=== PATIENT | female | born 1980 | race Caucasian/White ===

== ENCOUNTER 2023-11-02 12:07 | Emergency (ER) | payer OTHER, SELFPAY ==
[2023-11-02 12:17] VITALS: BP 127/93
[2023-11-02 12:32] VITALS: BMI 23.9
[2023-11-02 12:33] VITALS: BP 120/85
--- NOTE | 2023-11-02 12:47 | ED.GENMED ---
History of Present Illness
General
Chief Complaint: Breathing Problem
Time Seen by Provider: 11/02/23 12:46
Travel History
Have you had any contact with someone who has COVID-19?: No
Do you have any symptoms of coronavirus? Fever > 100 degrees, chills, cough, shortness of breath, sore throat, loss of taste or smell, muscle aches, or headache?: No
History of Present Illness
History of Present Illness:
HPI: The patient presents with 18 days worth of a cough. She has been having trouble sleeping. and patient wonder if there could be a component of anxiety as well. She has a 'vibration' sensation of the chest. She also describes what
sound like palpitations as well. She tried an albuterol inhaler�1 puff which helped for about an hour.
EXAM:
GENERAL: Well appearing in no distress
HEENT: Moist oral mucosa
CARDIOVASCULAR: No murmurs, normal heart rate and rhythm, No chest wall tenderness
PULMONARY: No respiratory distress, breath sounds are clear and equal
ABDOMEN: Soft with no peritoneal signs, no tenderness
NEUROLOGIC: Excellent strength all extremities, no coordination deficits
PSYCHIATRIC: Appropriate mental status, normal insight and judgement, appears slightly anxious
EXTREMITIES: Nontender, no edema, moves all extremities equally
SKIN: No rash, no lesions
ED COURSE:
1:15 PM: I initially evaluated patient
NUMBER AND COMPLEXITY OF PROBLEMS ADDRESSED AT THE ENCOUNTER
� Chronic conditions affecting care: Anxiety, GERD, had COVID in 2019
� Acute Exacerbation and/or Progression of Chronic Illness: This is an acute problem
� Differential Diagnosis includes: Viral syndrome, palpitations, anxiety, dysrhythmia, asthma pneumonia
AMOUNT AND/OR COMPLEXITY OF DATA TO BE REVIEWED AND ANALYZED
� I performed an independent evaluation of and my interpretation is:
EKG:
CT:
X-rays: Chest x-ray personally viewed and I see no clear acute abnormality
Laboratory Studies: COVID and flu testing are negative, CBC unremarkable, bicarb noted to be low however the patient was hyperventilating prior to this lab draw
Other:
� Review of other/old records: The patient had a visit here for shortness of breath in [place] was slightly elevated at that time but there was no CTA evidence of PE
� Clinical information was obtained by an independent historian: I spoke to at bedside
� Prescriptions/Medications Considered but not given:
� Further testing considered but not performed:
RISK OF COMPLICATIONS AND/OR MORBIDITY OR MORTALITY OF PATIENT MANAGEMENT
� Social determinants of health affecting care: Lives at home
� Discussion with other providers:
� Escalation of care including admission/observation vs risk of discharge considered: The patient's vital signs are reassuring with normal sat, normal respiratory rate, she has nonlabored breathing, normal heart rate. I do
suspect a component of anxiety. During the neb treatment, the patient went into severe distress. Suspect severe anxiety/hyperventilation; highly doubt true anaphylactic/allergic reaction. She was given IV Ativan. Bicarb slightly low likely
related to severe hyperventilation. I personally viewed chest x-ray and see no clear acute abnormality.
Past History
Past History
ED Past Medical History: GERD and Psychiatric (Anxiety)
ED Past Surgical History: None
Social History
Tobacco: Non-smoker
Alcohol: None
Drug: None
Personal:
Living: with family
Employment: Employed
Family History
Family History: Other (Family member with COVID)
Phy Exam
Physical Exam
Physical Exam:
See HPI
Course
Orders/Labs/Results
Orders:
Orders
11/02/23 12:35
Influenza A+B Rapid Molecular Urgent
IZA Source: Nasal Swab
Specimen Description:
11/02/23 12:36
COVID-19 Antigen Urgent
Source: Nasal Swab
11/02/23 13:11
Ipratropium/Albuterol Sulfate [Duoneb] 3 ml INH R NOW ONE
CR Chest - 2 Views Urgent
Comment:
Reason For Exam: cough sob
11/02/23 13:57
Lorazepam [Ativan] 1 mg .ROUTE .STK-MED ONE
11/02/23 14:01
Lorazepam [Ativan] 2 mg .ROUTE .STK-MED ONE
11/02/23 14:03
Lorazepam [Ativan] 1 mg IV NOW STA
11/02/23 14:09
CMP [Comprehensive Metabolic Panel] Urgent
Complete Blood Count/With Diff Urgent
Abnormal Lab Results
11/02/23
14:09
MCH 31.9 H pg
(27.0-31.0)
MPV 10.9 H fL
(7.4-10.4)
Potassium 3.4 L mmol/L
(3.5-5.1)
Chloride 110 H mmol/L
(98-107)
Carbon Dioxide 18 L mmol/L
(22-30)
ALT 51 H U/L
(0-35)
11/02/23 14:09
11/02/23 14:09
Vital Signs
Initial and Last Documented VS:
Initial Vital Signs
Temp Pulse Resp BP Pulse Ox
98.7 F 85 20 127/93 100
11/02/23 12:17 11/02/23 12:17 11/02/23 12:17 11/02/23 12:17 11/02/23 12:17
Last Documented Vital Signs
Temp Pulse Resp BP Pulse Ox
98.7 F 121 12 154/85 100
11/02/23 12:17 11/02/23 14:00 11/02/23 13:45 11/02/23 14:00 11/02/23 13:45
*Critical Care Note
Total Time (30-74mins, 75-104mins- exclusive of procedures): Not Applicable
ED Attending Note
-
Portions of this chart may have been created with voice recognition software.� Occasional wrong word or��sound alike� substitutions may have occurred due to the inherent limitations of voice recognition software.
Discharge Plan
Departure
Patient Disposition: Home (Routine Discharge)
Date of Disposition: 11/02/23
Time of Disposition: 15:02
Patient with high blood pressure during this ER visit?: Yes
Discharge Problem:
Cough
Instructions: Acute Bronchitis, Adult (DC)
Prescriptions:
New
benzonatate 200 mg capsule
200 mg PO TID PRN (Reason: Cough) Qty: 14 0RF
No Action
pantoprazole 40 MG tablet,delayed release (DR/EC)
40 mg PO DAILY
escitalopram oxalate 10 MG tablet
10 mg PO DAILY
Mircogrestin 10/06
1 tab PO DAILY
albuterol sulfate [Proventil HFA] 90 MCG/PUFF HFA aerosol inhaler
1 puff inhalation Q4HPRN PRN (Reason: shortness of breath) Qty: 1 0RF
meclizine [Antivert] 50 mg tablet
50 mg PO BID PRN (Reason: dizziness) Qty: 10 0RF
azithromycin [Zithromax] 250 mg tablet
250 mg PO DAILY 4 Days Qty: 4 0RF
Referrals:
Berlin King MD [Active] - Follow up in 2-3 days
Kyung Schneider MD [Family Provider] -
Activity Restrictions/Additional Instructions:
Your cough is likely due to a viral syndrome/bronchitis. Antibiotics do not typically help these. I do not see any signs of pneumonia on the x-ray. COVID and flu testing are negative. Regarding sleep I recommend that you try [id number]
doxylamine (brand name is Unisom). You can take 1 of these at night to help sleep. Return here if worse. I have given the contact information for a local [employer].
Interventions
Interventions:
*Risk Screen - Suicide Last Done: 11/02/23 12:17
*General Assessment Last Done: 11/02/23 12:17
*Neglect/Abuse Screening Last Done: 11/02/23 12:17
ED- Fall Risk Assessment Last Done: 11/02/23 12:33
*ED COVID-19 Vaccine History Last Done: 11/02/23 12:17
ED- Cardiac Assessment Last Done: 11/02/23 12:33
ED- Pulmonary Assessment Last Done: 11/02/23 12:33
[2023-11-02 13:00] VITALS: BP 118/79
[2023-11-02 13:06] LABS: COVID-19 Antigen Negative (Negative)
[2023-11-02] MEDS: DUONEB 3 ML INH (13:43)
[2023-11-02 14:00] VITALS: BP 154/85
[2023-11-02] MEDS: ATIVAN 1 MG IV (14:04)
[2023-11-02 14:18] LABS: % Basophils 0.4 % (0-2); % Eosinophils 0.4 % (0-6); % Immature Granulocytes 0.1 % (0-0.5); % Monocytes 7.2 % (1.7-9.3); % Neutrophils 58.9 % (42.2-75.2); Absolute Lymphocytes 2.4 10^3/uL (1.2-3.4); Absolute Monocytes 0.5 10^3/uL (0.1-0.6); Absolute Neutrophils 4.2 10^3/uL (1.4-6.5); Hematocrit 38.6 % (37.0-47.0); Hemoglobin 13.8 g/dL (12.0-16.0); Mean Corp Hgb Conc. 35.8 g/dL (33.0-37.0); Mean Corpuscular Hgb 31.9 pg (27.0-31.0); Mean Corpuscular Volume 89.4 fL (81.0-99.0); Mean Platelet Volume 10.9 fL (7.4-10.4); Nucleated Red Blood Cells % 0 %; Platelet Count 178 10^3/uL (130-400); Red Blood Cell Count 4.32 10^6/uL (4.20-5.40); Red Cell Dist. Width 12.6 % (11.5-14.5); White Blood Cell Count 7.2 10^3/uL (4.8-10.8)
[2023-11-02 14:39] LABS: ALT (SGPT) 51 U/L (0-35); AST (SGOT) 29 U/L (14-36); Albumin 4.1 g/dl (3.5-5.0); Alkaline Phosphatase 41 U/L (38-126); Blood Urea Nitrogen 11 mg/dl (7-17); Calcium 8.8 mg/dl (8.4-10.2); Carbon Dioxide 18 mmol/L (22-30); Chloride 110 mmol/L (98-107); Estimated Creatinine Clearance 113 ml/min; Glucose 98 mg/dl (70-99); Potassium 3.4 mmol/L (3.5-5.1); Sodium 137 mmol/L (135-145); Total Bilirubin 0.9 mg/dl (0.2-1.3); Total Protein 7.1 g/dl (6.3-8.2); eGFR > 60.00
[2023-11-02 15:00] VITALS: BP 106/73
== END 2023-11-02 15:29 | disposition home or self-care (01) ==
LOC: EMR 12:07
PROVIDERS: EMERGENCY PHYSICIAN Emergency Medicine; FAMILY PHYSICIAN Internal Medicine
DX: R05.9 Cough, unspecified (principal); R06.02 Shortness of breath; R00.2 Palpitations; R06.4 Hyperventilation; Z11.52 Encounter for screening for COVID-19; R03.0 Elevated blood-pressure reading, without diagnosis of hypertension; F41.9 Anxiety disorder, unspecified; K21.9 Gastro-esophageal reflux disease without esophagitis; Z86.16 Personal history of COVID-19; Z88.1 Allergy status to other antibiotic agents; Z88.0 Allergy status to penicillin
CPT/HCPCS: 99284; 96374; 94640; 71046; 80053; 85025; 87502; 87811